=== PATIENT | male | born 1985 | race Caucasian/White ===

== ENCOUNTER → 2018-11-29 15:28 | Outpatient (CLI) | payer OTHER, SELFPAY ==
--- NOTE | 2018-11-29 15:30 | MRI_ITS ---
STUDY: MRI BRAIN WITHOUT CONTRAST REASON FOR EXAM: Male, 33 years old. The patient presents with a history of multiple traumatic brain injuries since 2003. TECHNIQUE: Multiplanar and multisequence MR images of the brain were obtained without IV contrast. COMPARISON: No relevant priors. FINDINGS: Supratentorial Brain Parenchymal Size, Ventricles and Sulci: Normal. Extra-Axial Spaces: Normal. White Matter Tracks: Normal. No findings of traumatic brain injuries (TBI) with normal bilateral frontal poles, and orbital frontal and gyrus recti of the frontal lobes and bilateral temporal tips. Negative for diffuse axonal injuries, hemorrhages or hematoma. Normal DWI images with no evidence of recent intracranial ischemia or other cause of cytotoxic edema. Basal Ganglia (bilateral): Normal. Thalami: Normal. Arterial Flow: Normal. Venous Flow: Normal. Pituitary Gland and Infundibular Stalk: Normal. Optic Chiasm: Normal. Hypothalamus: Normal. Brainstem Pineal Gland / Tectal Plate: Normal. Midbrain: Normal. Leeroy: Normal. Medulla: Normal. Posterior Fossa Cerebellar Hemispheres: Normal. Internal Auditory Canals (Bilateral): Normal. Temporal Bones: Normal. Basal Cisterns: Normal. Orbits (within the constraints of a routine brain study) Globes: Normal. Optic Nerves: Normal. Interconal / Extraconal Spaces: Normal. Extraocular Muscles: Normal. Skull Calvarium / Skull Base: Normal. There are scattered sebaceous cysts within the subcutaneous adipose space of the calvarium (axial T2 series 5, image 24). Paranasal Sinuses: Normal. Soft Tissue Structures: Normal. Cervical Spine (visualized): Normal. MRI/Brain without Contrast IMPRESSION: 1. Normal unenhanced MRI of the brain. 2. No findings of traumatic brain injuries. 3. Scattered sebaceous cysts within the subcutaneous adipose space of the calvarium. Electronically Signed: Scar Solis DO at 17:40 EDT Tel , Service support ,
== END ==
PROVIDERS: Family Provider Family Medicine; PCP Family Medicine
DX: R41.3 Other amnesia (principal)
CPT/HCPCS: 70551

== ENCOUNTER 2020-04-03 11:56 | Emergency (ER) | payer OTHER, SELFPAY ==
[2020-04-03 11:58] VITALS: BP 131/86; PULSE 88; RESP 18; TEMP 36.7; O2SAT 95; BMI 27.8
--- NOTE | 2020-04-03 12:30 | ED.VIS.GEN ---
History of Present Illness Chief Complaint: Upper Extremity Injury Detail of Chief Complaint: RUE pain without injury Informant: Patient Onset: Weeks - 1-2 Context: Gradual Onset Timing: Continuous Quality: burning Location: RUE from neck to forearm/wrist Current Severity: Severe Maximum Severity: Severe Worsened by: certain movements especially when bending over Relieved by: nothing in particular Associated Symptoms: paresthesias both hands off and on x several years Narrative: Patient has been having paresthesias off and on for a long time, for which he was trying to get an MRI. It was actually scheduled for today, but he learned that it was not preapproved by insurance yet, although his doctor was working on getting that done. Now for the past week or so, he has had burning down his right upper extremity, on the top of his upper arm and forearm, he still gets the intermittent paresthesias in his fingers, none of them seem to be unaffected, but he does not have that all of the time like he does the burning. The burning goes up into his trapezius area toward his neck. It hurts throughout this entire area. Moving his right arm and shoulder around does not seem to make anything better or worse, and he is able to do so fully. He has experienced no weakness in his right upper extremity that he knows of, but admits that since he is right hand dominant, he has been trying to use it less because of all of this pain. He denies any new injuries that could explain these new symptoms. He was in the in [place], he had an injury that may have been related to the onset of the paresthesias in his hands. He does not have any neurologic symptoms in his legs. No diplopia or headaches. He has had a C-spine x-ray in the past week or so that was negative at urgent care, and they put him on prednisone, he is almost done with that and it is not helping. He is also been trying anti-inflammatories which have not been helping. Past Medical History - Allergies and Home Meds Allergies/Adverse Reactions: Allergies Penicillins Allergy (Verified 04/03/20 11:58) Unknown Primary Care Physician: Tom Lovelace MD [Primary Care Provider] - Past Medical History: None Surgical History: no surgical history Smoking Status: Former smoker Review of Systems General: Denies: Chills, Fever, Sweats Eyes: Denies: Visual changes - bilaterally, Diplopia ENT: Denies: Bilateral ear pain, Rhinorrhea, Sore throat Cardiovascular: Denies: Chest pain, Palpitations Respiratory: Denies: Dyspnea, Cough, Dyspnea on exertion Gastrointestinal: Denies: Abdominal pain, Nausea, Vomiting, Diarrhea, Melena, Hematochezia Genitourinary: Denies: Dysuria, Hematuria, Frequency Musculoskeletal: Reports: Neck pain, Back pain, Extremity Pain Skin: Denies: Rash, Wounds Neurological: Reports: Parasthesia. Denies: Headache, Weakness Physical Exam Vital Signs/Narrative: Vital Signs Temp Pulse Resp BP Pulse Ox 04/03/20 11:58 98.1 F 88 18 131/86 H 95 Inital Vital Signs reviewed: Yes General: Well nourished, Well developed, No Acute Distress Head: Normocephalic, Atraumatic Eyes: Perrl, EOMI ENT: Moist mucous membranes, No rhinorrhea Neck: Supple, No lymphadenopathy, - - tender in right trapezius. no c-spine bony midline tenderness. FROM. Respiratory: No distress Neurological: Alert, Oriented x3, Cranial nerves II-XII grossly intact, Normal Strength, Normal DTR, Normal Gait, Parasthesia - down dorsum of right upper arm and forearm Psychological: Normal affect, Normal Mood Diagnostic/Tx/Re-eval - Medical Decision Making I suspect this patient has a cervical radiculopathy causing his symptoms. He is not improving with NSAIDs, steroid and anti-inflammatories, and is already had his cervical spine x-ray. As I discussed with him I think he needs an MRI. He agrees. I will place him on gabapentin to try to help with his pain, he agrees that narcotics are less desirable for this problem. He is wondering if this is a right shoulder joint problem, and I do not think that this is. He has a negative drop sign, no subacromial tenderness, negative Yergason, and basically full range of motion without any changes in his pain. I suggest that if he pays more attention to the movements that make the pain worse, it will likely be movements about the cervical spine. I think he needs an outpatient MRI, there is no emergent neurologic compromise to justify getting one emergently here or as an inpatient, and he understands this plan will follow-up. ED Disposition - Plan for ED Patient: Disposition: Home or Assisted Living Diagnosis: Cervical radiculopathy Instructions: ED CERVICAL RADICULOPATHY Prescriptions: Gabapentin 1 cap PO TID 29 Days #87 cap Prescription Printed Referrals: Tom Lovelace MD [Primary Care Provider] - As soon as possible
[2020-04-03] MEDS: Gabapentin 300 MG Capsule PO (12:52)
== END 2020-04-03 12:52 | disposition home or self-care (01) ==
PROVIDERS: Emergency Provider Emergency Medicine; PCP Family Medicine
DX: M54.12 Radiculopathy, cervical region (principal); Z87.891 Personal history of nicotine dependence
CPT/HCPCS: 99283

== ENCOUNTER 2020-11-09 08:40 | Emergency (ER) | payer OTHER, SELFPAY ==
[2020-11-09 08:41] VITALS: BP 98/65; PULSE 65; RESP 16; TEMP 36.2; O2SAT 98; BMI 27.0
--- NOTE | 2020-11-09 08:55 | RAD_ITS ---
STUDY: X-RAY - LEFT HAND, ATTENTION 1 FINGER REASON FOR EXAM: Male, 35 years old. injury yesterday TECHNIQUE: 3 view(s) of the finger were obtained. COMPARISON: None. FINDINGS: Normal metacarpal head. Normal metacarpophalangeal joint. Normal proximal phalanx. Normal middle phalanx. Normal distal phalanx. Normal proximal interphalangeal joint. Normal distal interphalangeal joint. RAD/Finger(s) Min 2 Views IMPRESSION: Normal x-ray examination of the finger. Electronically Signed: Lee Mcguire MD at 9:11 EDT Tel , Service support ,
--- NOTE | 2020-11-09 09:12 | ED.DCSUM_ITS ---
History of Present Illness Chief Complaint: Laceration Informant: Patient Narrative: 35-year-old male presents with a left thumb injury. He states the drill bit went into the side of his thumb yesterday. He believes his tetanus shot is up-to-date. He states that it has continued to bleed so he went to urgent care and they referred him to emergency. Past Medical History - Allergies and Home Meds Allergies/Adverse Reactions: Allergies Penicillins Allergy (Verified 11/09/20 08:43) Unknown Primary Care Physician: Tom Lovelace MD [Primary Care Provider] - Past Medical History: - - TBI, IBS, plaque psoriasis, anxiety, cervical spinal stenosis Surgical History: noncontributory Lives: Spouse/ Significant Other Smoking Status: Former smoker Drugs: None Review of Systems General: Denies: Chills, Fever, Sweats Eyes: Denies: Visual changes - bilaterally, Diplopia ENT: Denies: Rhinorrhea, Sore throat Cardiovascular: Denies: Chest pain, Palpitations Respiratory: Denies: Dyspnea, Cough, Dyspnea on exertion Gastrointestinal: Denies: Abdominal pain, Nausea, Vomiting, Diarrhea, Melena, H ematochezia Genitourinary: Denies: Dysuria, Hematuria, Frequency Musculoskeletal: Denies: Back pain, Extremity Pain Skin: Reports: Wounds. Denies: Rash Neurological: Denies: Headache, Weakness, Numbness Physical Exam Vital Signs/Narrative: Vital Signs Temp Pulse Resp BP Pulse Ox 11/09/20 08:41 97.2 F L 65 16 98/65 98 Inital Vital Signs reviewed: Yes General: Well nourished, Well developed, No Acute Distress Head: Normocephalic, Atraumatic Eyes: Perrl, EOMI ENT: Moist mucous membranes, No rhinorrhea Neck: Supple, Nontender Cardiovascular: Regular rate, Regular rhythm, No murmurs Respiratory: No distress, CTA bilaterally, Chest nontender Abdomen: Soft, Nontender, Nondistended, Normal bowel sounds Back: Nontender, Normal Inspection Extremities: Nontender, No edema Skin: Normal color, No rash, Trauma - There is a puncture site with skin avulsion of about 3 to 4 mm on the side of the thumb. Neurovascularly intact. There is mild venous ooze. Neurological: Alert, Oriented x3, Cranial nerves II-XII grossly intact, Normal Strength, Normal Sensation Psychological: Normal affect, Normal Mood Diagnostic/Tx/Re-eval Clinical Impression(s) from Imaging Studies Finger X-Ray 11/09/20 08:55 IMPRESSION: Normal x-ray examination of the finger. Electronically Signed: Lee Mcguire MD at 9:11 EDT Tel , Service support , - Medical Decision Making My interpretation of the thumb x-ray is no fracture. Radiology concurs. I placed a patch of Gelfoam and then Coban on it. Was advised to leave the dressing in place for 48 hours and to avoid hitting or manipulating the thumb. ED Disposition - Plan for ED Patient: Disposition: Home or Assisted Living Diagnosis: Puncture wound of thumb, Encounter for post-traumatic wound check Referrals: Tom Lovelace MD [Primary Care Provider] - As Needed Additional Instructions: Leave the dressing in place for 48 hours. Then remove in the shower. I strongly advised not to manipulate the thumb or the wound today -it may be advisable to rest today and keep the hand slightly elevated while watching the NCAA basketball tournament.
== END 2020-11-09 09:20 | disposition home or self-care (01) ==
LOC: ED 09:19
PROVIDERS: Emergency Provider Emergency Medicine; PCP Family Medicine
DX: S61.032A Puncture wound without foreign body of left thumb without damage to nail, initial encounter (principal); W29.8XXA Contact with other powered hand tools and household machinery, initial encounter; Y93.9 Activity, unspecified; Y92.9 Unspecified place or not applicable; K58.9 Irritable bowel syndrome, unspecified; L40.0 Psoriasis vulgaris; F41.9 Anxiety disorder, unspecified; M48.02 Spinal stenosis, cervical region; Z87.820 Personal history of traumatic brain injury; Z79.899 Other long term (current) drug therapy; Z87.891 Personal history of nicotine dependence
CPT/HCPCS: 73140; 99282

== ENCOUNTER → 2022-09-03 | Outpatient (CLI) | payer OTHER, SELFPAY ==
--- NOTE | 2022-09-03 07:45 | MRI_ITS ---
STUDY: MRI LUMBAR SPINE WITHOUT CONTRAST REASON FOR EXAM: Male, 37 years old. Chronic low back pain. TECHNIQUE: Standardized fat and water weighted pulse sequences were obtained in the sagittal and axial planes. COMPARISON: CT abdomen and pelvis with contrast 08/02/2013. FINDINGS: T11-T12 and T12-L1: (Sagittal only). Normal endplates. Normal disc height, hydration and morphology. No ventral extradural defects. Normal central canal and bilateral intervertebral neural foramina. Normal lumbar lordosis. There is no substantial scoliosis. Normal conus medullaris that terminates at the mid L1 vertebral body level. L1-2: Normal endplates. Normal disc height, hydration and morphology. Normal bilateral facet joints. Normal central canal and bilateral lateral recesses. Normal bilateral intervertebral neural foramina. L2-3: Normal endplates. Mild disc space height narrowing is unchanged. Minimal ventral extradural defect due to small posterior bulging annulus is unchanged. No significant facet arthropathy. Prominent dorsal epidural lipomatosis. Moderate flattening central canal stenosis with an AP canal diameter of 7.6 mm but the transverse canal diameter is 20 mm wide. Normal bilateral lateral recesses. Normal bilateral intervertebral neural foramina. This level is unchanged. L3-4: Mixed Modic type I and type II degenerative changes of the vertebral marrow underneath the right half of the vertebral endplates. Moderate right-sided disc space height narrowing, previously mild. Mild ventral extradural defect due to posterior bulging annulus. Prominent dorsal epidural lipomatosis. No significant facet arthropathy. Prominent dorsal epidural lipomatosis. Moderately pronounced flattening central canal stenosis with an AP canal diameter of 5.8 mm, previously 8 mm. Normal bilateral lateral recesses. Mild stenosis of the right intervertebral neural foramen. Normal left intervertebral neural foramen. L4-5: Central Schmorl''s nodes in the vertebral endplates were present previously. Moderate central disc space height narrowing is unchanged. Mild ventral extradural defect due to posterior bulging annulus. No significant facet arthropathy. Prominent dorsal epidural lipomatosis. Moderately pronounced central canal stenosis with an AP canal diameter of 6.6 mm, previously 8.6 mm. Normal bilateral lateral recesses. Mild stenosis of the right intervertebral neural foramen. Normal left intervertebral neural foramen. L5-S1: Mild Modic type II degenerative vertebral marrow fat infiltration underneath the vertebral endplates. Moderate disc space height narrowing. Normal facet joints. Small posterior bulging annulus. Mild central canal stenosis with an AP canal diameter of 8.6 mm surrounded by minimal epidural lipomatosis. Normal bilateral lateral recesses. [id number] stenosis of the right intervertebral neural foramen. Mild stenosis of the left intervertebral neural foramen. Normal visualized sacral ala. Normal visualized paraspinous soft tissue structures. MRI/Spine Lumbar (Routine) IMPRESSION: 1. Moderately pronounced flattening central canal stenosis at L3-L4 disc space level with an AP canal diameter 5.8 mm, previously 8 mm, small posterior bulging annulus and mild stenosis of the right intervertebral neural foramen. 2. Moderately pronounced central canal stenosis at L4-L5 disc space level with an AP canal diameter of 6.6 mm, previously 8.6 mm, mild stenosis of the right intervertebral neural foramen and small posterior bulging annulus. 3. Moderate flattening central canal stenosis at L2-L3 disc space level with an AP canal diameter of 7.6 mm of the transverse canal diameter is 20 mm wide and small posterior bulging annulus. This level is unchanged. 4. Mild central canal stenosis at L5-S1 disc space level with an AP canal diameter of 8.6 mm surrounded by minimal epidural lipomatosis, small posterior bulging annulus, mild to moderate stenosis of the right intervertebral neural foramen and mild stenosis of the left intervertebral neural foramen. This level is unchanged. 5. No MRI evidence of lumbar extruded disc fragment. Electronically Signed: Travis Montano MD at 10:37 EST ,
== END | disposition home or self-care (01) ==
LOC: MRI 07:15
PROVIDERS: PCP Nurse Practitioner Family
DX: M48.061 Spinal stenosis, lumbar region without neurogenic claudication (principal); M48.07 Spinal stenosis, lumbosacral region; M51.36 Other intervertebral disc degeneration, lumbar region
CPT/HCPCS: 72148